=== PATIENT | female | born 2000 | race Caucasian/White ===

== ENCOUNTER 2025-04-23 09:29 | Outpatient (AMB) | payer BC, SELFPAY ==
[2025-04-23 09:32] VITALS: BP 115/71; PULSE 99; RESP 16; O2SAT 96; BMI 25.0
--- NOTE | 2025-04-23 09:32 | A.OFFVIS_ITS ---
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 She has a history of sacroiliac joint pain and intermittent muscle spasms, managed by Dr. Jade. Additionally, she experiences chronic bilateral hand pain and rotational spasms, for which she has received occupational therapy. The pain is described as dull and aching, affecting her hips, wrists, knees, ankles, and lower back. She has been evaluated by a neurologist in [place], who suspects a functional neurological disorder. Rheumatology evaluation did not reveal any rheumatological conditions, and tests returned normal results. The patient smokes cannabis a few times a week, which may be relevant to her pain management. She is in the process of switching her insurance from [employer] to [employer], which may affect her access to certain treatments. Pain Description - Onset and Timing: Chronic, diffuse pain symptoms - Quality and Character: Dull and aching pain - Primary Location: Hips, wrists, knees, ankles, and lower back - Exacerbating Factors: Not explicitly discussed - Relieving Factors: Not explicitly discussed Physical Exam - Appears afebrile. - Alert and oriented. - Mood and affect appropriate. - Follows and participates in conversation appropriately. - Respiratory effort is unlabored. - Able to transition from sit to stand unassisted. - Ambulates with bilaterally normal heel strike and toe off. Results - Rheumatology tests: Normal results Pain Management - Affect: Impact on daily life not explicitly discussed - Analgesia: No specific pain medications discussed - Adverse Effects: Not explicitly discussed - Activities of Daily Living: Not explicitly discussed - Aberrant Drug Related Behaviors: Smokes cannabis a few times a week [facility] Medical History (Updated 07/11/25 @ 09:19 by Altagracia Merlos LPN) ADD (attention deficit disorder) Muscle spasm Diffuse arthralgia Sacroiliac dysfunction Low back pain Hand pain Physical Exam Vital Signs: Last Vital Signs Pulse 99 04/23/25 09:32 Resp 16 04/23/25 09:32 BP 115/71 04/23/25 09:32 Pulse Ox 96 04/23/25 09:32 Oxygen Delivery Method Room Air 04/23/25 09:32 BMI result Body Mass Index 25.0 Assessment & Plan Assessment & Plan (1) Diffuse arthralgia: Code(s): M25.50 - Pain in unspecified joint Category: Medical Plan Plan - Consider referral to a functional neurology specialist for further evaluation and management of suspected functional neurological disorder. - Continue rheumatology consultation for further assessment of diffuse arthralgia and possible fibromyalgia. - Discussed the limitations of interventional pain management techniques for younger patients with undiagnosed causes of diffuse arthralgia and the importance of long-term solutions. - Encouraged lifestyle interventiones such as exercise, stretching, and diet to manage symptoms. Patient was informed and verbally consented to the use of an ambient scribe for clinic note documentation during this visit. Discussion Notes I discussed with the patient the potential diagnosis of functional neurological disorder and the importance of consulting with a specialist in functional neurology for further evaluation. We also talked about the limitations of interventional pain management techniques for younger patients in context of the need for long-term solutions. I emphasized the importance of lifestyle modifications, including exercise and diet, to help manage her symptoms. Additionally, I advised exploring a rheumatology consultation to further assess her diffuse arthralgia and the possibility of fibromyalgia. Patient Instructions - Follow up with a functional neurology specialist for further evaluation. - Consider consulting a dressing room attendant for further assessment of joint pain. - Engage in regular exercise and stretching routines to help manage symptoms. - Maintain a healthy diet to support overall wellness. Coding Level of Care Code New Pt Level 4 (00993) Diagnoses Diffuse arthralgia M25.50
== END 2025-04-23 10:09 | disposition home or self-care (01) ==
LOC: HO.PMC 09:29
PROVIDERS: PCP Nurse Practitioner Family; Visit Provider Internal Medicine
DX: M25.50 Pain in unspecified joint (principal)
CPT/HCPCS: 99204